=== PATIENT | female | born 1990 | race Caucasian/White ===

== ENCOUNTER 2021-05-27 12:26 | Outpatient (REF) | payer OTHER, SELFPAY ==
[2021-05-27 14:01] LABS: Anion Gap 12 (12-20); Calcium 9.5 mg/dL (8.4-10.2); Carbon Dioxide 21 mmol/L (22-29); Chloride 109 mmol/L (96-108); Magnesium 2.3 mg/dL (1.6-2.6); Phosphorus 3.8 mg/dL (2.7-4.5); Potassium 4.5 mmol/L (3.3-5.1); Sodium 137 mmol/L (135-145)
== END 2021-05-27 12:27 | disposition home or self-care (01) ==
LOC: HO.LAB 12:26
PROVIDERS: PCP Internal Medicine; Visit Provider Psychiatry & Neurology Neurology
DX: R25.3 Fasciculation (principal)
CPT/HCPCS: 36415; 80051; 82310; 82550; 83735; 84100

== ENCOUNTER 2021-08-03 16:01 | Emergency (ER) | payer OTHER, SELFPAY ==
[2021-08-03] VITALS (9 sets, daily range): BP systolic 106–124; BP diastolic 63–76; PULSE 51–68; RESP 12–18; TEMP 36.3–36.9; O2SAT 99–100; BMI 23.5
--- NOTE | 2021-08-03 | ECG_ITS ---
Test Reason : SYNCOPE Blood Pressure : / mmHG Vent. Rate : 061 BPM Atrial Rate : 061 BPM P-R Int : 138 ms QRS Dur : 106 ms QT Int : 412 ms P-R-T Axes : 007 070 065 degrees QTc Int : 414 ms Normal sinus rhythm Incomplete right bundle branch block Borderline ECG No previous ECGs available Referred By: Generic ED Physician Electronically Signed By:LATRICE LADD
--- NOTE | 2021-08-03 18:53 | ED.SYNCOPE ---
HPI - Syncope General Chief Complaint: Syncope Stated Complaint: ?Syncope Time Seen by Provider: 08/03/21 18:52 Source: patient Mode of arrival: ambulatory Limitations: no limitations History of Present Illness HPI narrative: Patient's history of POTS on atenolol was in usual health driving at the signal she just blacked out for few seconds no chest pain no palpitation patient felt tunnel vision with mild headache afterwards when she woke up she felt tired no seizure activity noticed no chest pain no nausea no vomiting patient slept well last night never had a similar episode in Related Data Home Medications Medication Instructions Recorded Confirmed atenolol 25 mg tablet 1 tab PO DAILY 08/03/21 08/03/21 magnesium oxide 400 mg (241.3 mg 1 tab PO BEDTIME 08/03/21 08/03/21 magnesium) tablet topiramate 25 mg tablet 25 mg PO BEDTIME 08/03/21 08/03/21 Allergies Allergy/AdvReac Type Severity Reaction Status Date / Time Peanut Butter Allergy Anaphylaxis Verified 08/03/21 18:59 seafood Allergy Anaphylaxis Verified 08/03/21 18:59 tramadol AdvReac Chest Pain Verified 08/03/21 16:10 Review of Systems Review of Systems: Yes all other systems are reviewed and are negative PMFSH Past Medical History Medical History Migraines POTS (postural orthostatic tachycardia syndrome) Surgical History H/O knee surgery Tubal ligation status Social History Social History Alcohol intake: never Patient Tobacco Use Status: Never used Tobacco Use of substances other than those prescribed or required for medical reasons: No Advance Directives: No Advance Directives Information Provided: No Patient : No Physical Exam Vital Signs: Vital Signs: Last Vital Signs Temp 98.5 F 08/03/21 20:00 Pulse 57 08/03/21 20:56 Resp 14 08/03/21 20:47 BP 107/72 08/03/21 20:56 Pulse Ox 100 08/03/21 20:47 Body Mass Index 23.5 Appearance: Alert. Oriented X3. No acute distress. Eyes: PERRLA, No Nystagmus ENT: Pharynx normal. Oral Mucosa moist Neck: Normal inspection. Neck supple. CVS: Normal heart rate and rhythm. Pulses normal. Respiratory: No respiratory distress. Equal air entry bilateral, no wheezing/rales/rhonchi Abdomen: Soft and nontender. Bowel sounds are present, no mass palpable, no CVA tenderness Skin: Skin warm and dry. Normal skin color. Normal skin turgor. Extremities: No lower extremity edema. No calf tenderness Neuro: Oriented X 3. No motor deficit. No sensory deficit.No cerebellar signs , cranial nerves II-XII intact MDM - Syncope MDM Narrative Medical decision making narrative: Patient's syncope etiology is not very clear possible complex migraine versus complex seizures. Patient advised to follow with PCP Differential Diagnosis Differential diagnosis: Likely syncope due to orthostatic hypotension and vasovagal syncope Lab Data Attestation: I reviewed the patient's lab results. Result diagrams: 08/03/21 19:08 08/03/21 19:08 Labs: Lab Results 08/03/21 08/03/21 08/03/21 Range/Units 19:08 19:08 19:08 WBC 9.0 (4.8-10.8) X10*3/uL RBC 4.31 (4.20-5.50) X10*6/uL Hgb 13.1 (12.0-16.0) g/dl Hct 38.7 (37-47) % MCV 89.8 (80-98) fL MCH 30.4 (27.0-33.0) pg MCHC 33.9 (31.0-35.0) g/dl RDW 11.5 (11.0-16.0) % Plt Count 301 (160-400) X10*3/uL MPV 10.0 (9.4-12.3) fL Immature Gran % (Auto) 0.2 (0.0-0.4) % Neut % (Auto) 56.1 (45-73) % Lymph % (Auto) 29.0 (20-40) % [place] % (Auto) 4.3 (2-11) % Eos % (Auto) 9.8 H (0-4) % Baso % (Auto) 0.6 (0-2) % Lymph # (Auto) 2.6 (1.2-4.9) X10*3/uL [place] # (Auto) 0.4 (0.1-1.2) X10*3/uL Eos # (Auto) 0.9 H (0.0-0.4) X10*3/uL Baso # (Auto) 0.1 (0.0-0.2) X10*3/uL Abs Immat Gran (auto) 0.02 (0.00-0.03) X10*3/uL Absolute Neuts (auto) 5.1 (2.0-8.3) X10*3/uL Absolute Nucleated RBC 0.000 (0.0-0.012) X10*3/uL Nucleated RBC % (auto) 0.0 (0.0-0.2) /100WBC Sodium 139 (135-145) mmol/L Potassium 3.8 (3.3-5.1) mmol/L Chloride 109 H (96-108) mmol/L Carbon Dioxide 22 (22-29) mmol/L Anion Gap 12 (12-20) BUN 11 (9-16) mg/dL Creatinine 0.79 (0.5-1.4) mg/dL Estim Creat Clear Calc 101.2 Estimated GFR > 60 Random Glucose 102 (60-115) mg/dL Calcium 8.9 D (8.4-10.2) mg/dL Magnesium 2.3 (1.6-2.6) mg/dL Total Bilirubin 0.3 (0.0-1.0) mg/dL AST 20 (5-31) U/L ALT 23 (0-31) U/L Alkaline Phosphatase 73 (39-117) U/L Troponin I High Sens < 3.5 (<3.5-17.0) ng/L Total Protein 7.2 (6.5-8.0) g/dL Albumin 4.2 (3.5-5.0) g/dL ECG Data Attestation: I personally reviewed and interpreted this ECG as follows: Interpretation: Normal sinus rhythm heart rate 61 beats per minute incomplete right bundle-branch block no acute ST T wave changes normal axis Discharge Plan Discharge Clinical Impression: Vasovagal syncope Patient Disposition: Home, Self-Care Instructions: Syncope (ED) Additional Instructions: You likely have vasovagal syncope questionable migraine cause Drink plenty of fluids follow-up with your PCP Report to the ER if any seizures. Prescriptions: No Action atenolol 25 mg tablet 1 tab PO DAILY RF: 0 topiramate 25 mg tablet 25 mg PO BEDTIME RF: 0 magnesium oxide 400 mg (241.3 mg magnesium) tablet 1 tab PO BEDTIME RF: 0
[2021-08-03 19:14] LABS: MANUAL DIFF FLAG NO
[2021-08-03 19:17] LABS: Basophils Absolute Auto 0.1 X10*3/uL (0.0-0.2); Basophils Percent Auto 0.6 % (0-2); Eosinophils Absolute Auto 0.9 X10*3/uL (0.0-0.4); Eosinophils Percent Auto 9.8 % (0-4); Hematocrit 38.7 % (37-47); Hemoglobin 13.1 g/dl (12.0-16.0); Imm Gran Abs Auto 0.02 X10*3/uL (0.00-0.03); Imm Gran Pct Auto 0.2 % (0.0-0.4); Lymphocytes Absolute Auto 2.6 X10*3/uL (1.2-4.9); Mean Corpuscular HGB Conc 33.9 g/dl (31.0-35.0); Mean Corpuscular Hemoglobin 30.4 pg (27.0-33.0); Mean Corpuscular Volume 89.8 fL (80-98); Monocytes Absolute Auto 0.4 X10*3/uL (0.1-1.2); Monocytes Percent Auto 4.3 % (2-11); Neutrophils Absolute Auto 5.1 X10*3/uL (2.0-8.3); Neutrophils Percent Auto 56.1 % (45-73); Platelet Count 301 X10*3/uL (160-400); Red Blood Count 4.31 X10*6/uL (4.20-5.50); Red Cell Distribution Width 11.5 % (11.0-16.0)
[2021-08-03 19:32] LABS: Alanine Aminotransferase 23 U/L (0-31); Albumin Level 4.2 g/dL (3.5-5.0); Alkaline Phosphatase 73 U/L (39-117); Anion Gap 12 (12-20); Aspartate Amino Transferase 20 U/L (5-31); Bilirubin Total 0.3 mg/dL (0.0-1.0); Blood Urea Nitrogen 11 mg/dL (9-16); Calcium 8.9 mg/dL (8.4-10.2); Carbon Dioxide 22 mmol/L (22-29); Chloride 109 mmol/L (96-108); Creatinine Clr Calc Pharmacy 101.2; Estimated Glomerular Filt Rate > 60; Glucose Random 102 mg/dL (60-115); Magnesium 2.3 mg/dL (1.6-2.6); Potassium 3.8 mmol/L (3.3-5.1); Sodium 139 mmol/L (135-145); Total Protein 7.2 g/dL (6.5-8.0)
[2021-08-03 19:35] LABS: Troponin-I High Sensitivity < 3.5 ng/L (<3.5-17.0)
--- NOTE | 2021-08-03 20:47 | PC.NURSE ---
Pt resting on stretcher in NAD, breathing with ease on RA. When asked how pt is feeling, she reports I don't feel right. When elaborating, pt states it feels like my heart is in my butt. This RN asks pt for further clarification and she states it feels like it's moving slowly. I'm sitting here trying to follow along [pt on cellphone following along to a live [employer] game] and I know what she's saying, but I also feel like I don't know what she's saying. Pt denies pain/discomfort. Pt reassured that VS are WNL, and this RN to report pt's concerns to Dr Rollins. Stretcher remains in low locked position, rails raised, call trevino within reach.
== END 2021-08-03 22:40 | disposition home or self-care (01) ==
PROVIDERS: Emergency Provider Internal Medicine
DX: R55 Syncope and collapse (principal); Z79.899 Other long term (current) drug therapy
CPT/HCPCS: 36415; 80053; 83735; 84484; 85025; 93005; 99284; 99285

== ENCOUNTER 2021-11-22 13:48 | Outpatient (REF) | payer OTHER, SELFPAY ==
[2021-11-22 14:36] LABS: Binax Internal Control QC Valid; Binax Lot number: 9864; Binax Now Covid-19 Ag Negative (Negative)
== END 2021-11-22 13:49 | disposition home or self-care (01) ==
LOC: HO.LAB 13:48
PROVIDERS: Visit Provider Internal Medicine
DX: Z20.822 Contact with and (suspected) exposure to COVID-19 (principal)
CPT/HCPCS: C9803

== ENCOUNTER 2021-11-28 14:59 | Outpatient (REF) | payer OTHER, SELFPAY ==
[2021-11-28 15:35] LABS: Binax Internal Control QC Valid; Binax Now Covid-19 Ag Positive (Negative)
== END 2021-11-28 15:00 | disposition home or self-care (01) ==
LOC: HO.LAB 14:59
PROVIDERS: Visit Provider Internal Medicine
DX: Z20.822 Contact with and (suspected) exposure to COVID-19 (principal)
CPT/HCPCS: C9803

== ENCOUNTER 2024-03-10 20:03 | Emergency (ER) | payer MEDICAID, SELFPAY ==
[2024-03-10 20:07] VITALS: BP 147/96; PULSE 89; RESP 18; TEMP 36.6; O2SAT 94; BMI 21.9
--- NOTE | 2024-03-10 20:12 | ECG_ITS ---
Test Reason : DIZZINESS Blood Pressure : / mmHG Vent. Rate : 073 BPM Atrial Rate : 073 BPM P-R Int : 098 ms QRS Dur : 096 ms QT Int : 390 ms P-R-T Axes : 075 078 069 degrees QTc Int : 429 ms Sinus rhythm with short OR Otherwise normal ECG When compared with ECG of 03-AUG-2021 16:38, OR interval has decreased Referred By: Susana Dias Electronically Signed By:KETAN PLATT
[2024-03-10 20:27] LABS: MANUAL DIFF FLAG NO
[2024-03-10 20:30] LABS: Basophils Absolute Auto 0.1 X10*3/uL (0.0-0.2); Basophils Percent Auto 0.9 % (0-2); Eosinophils Absolute Auto 0.7 X10*3/uL (0.0-0.4); Eosinophils Percent Auto 8.8 % (0-4); Hematocrit 34.6 % (37.0-47.0); Hemoglobin 12.3 g/dl (12.0-16.0); Imm Gran Abs Auto 0.02 X10*3/uL (0.00-0.03); Imm Gran Pct Auto 0.2 % (0.0-0.4); Lymphocytes Absolute Auto 2.8 X10*3/uL (1.2-4.9); Lymphocytes Percent Auto 34.1 % (20-40); Mean Corpuscular HGB Conc 35.5 g/dl (31.0-35.0); Mean Corpuscular Volume 87.2 fL (80.0-98.0); Mean Platelet Volume 9.7 fL (9.4-12.3); Monocytes Absolute Auto 0.5 X10*3/uL (0.1-1.2); Monocytes Percent Auto 5.6 % (2-11); Neutrophils Absolute Auto 4.1 x10*3/uL (2.0-8.3); Neutrophils Percent Auto 50.4 % (45-73); Platelet Count 336 X10*3/uL (160-400); Red Blood Count 3.97 X10*6/uL (4.20-5.50); Red Cell Distribution Width 11.9 % (11.0-16.0); White Blood Count 8.1 X10*3/uL (4.8-10.8)
[2024-03-10 20:42] LABS: Alanine Aminotransferase 13 U/L (0-31); Albumin Level 4.1 g/dL (3.5-5.0); Alkaline Phosphatase 61 U/L (39-117); Anion Gap 11 (12-20); Aspartate Amino Transferase 13 U/L (5-31); Bilirubin Total 0.4 mg/dL (0.0-1.0); Blood Urea Nitrogen 10 mg/dL (9-16); Calcium 9.2 mg/dL (8.4-10.2); Carbon Dioxide 20 mmol/L (22-29); Chloride 110 mmol/L (96-108); Creatinine Clr Calc Pharmacy 102.3; Estimated Glomerular Filt Rate > 60; Glucose Random 94 mg/dL (60-115); Potassium 3.4 mmol/L (3.3-5.1); Sodium 138 mmol/L (135-145); Total Protein 7.4 g/dL (6.5-8.0)
[2024-03-11 00:07] VITALS: BP 151/93; PULSE 65; RESP 16; TEMP 36.7; O2SAT 100
--- NOTE | 2024-03-11 00:52 | ED.GENADULT ---
HPI - General Adult General Chief complaint: Dizziness Stated complaint: tremors.dizziness Time Seen by Provider: 03/11/24 00:36 History of Present Illness HPI narrative: The patient is a 33-year-old with a history of postural orthostatic tachycardic syndrome (POTS). She is on topiramate, methylphenidate, and atenolol. The patient says for the last 3 days she has been having intermittent episodes of a tremulous type of feeling that begins in her face and then spreads to her body. This is associated with nausea and dizziness and a sense of feeling faint. She has not fainted. She has not vomited. She says the episodes last a few minutes at a time and occurs multiple times throughout the day. She estimates she might have had as many as 20 episodes during the day. She came to the emergency room for evaluation of these episodes. At the time that I interviewed her she was not experiencing an episode but she says that she would experienced 5 episodes of this kind while waiting to be seen in the emergency room. No fever, sweats, chills. Related Data Home Medications ?Medication ?Instructions ?Recorded ?Confirmed atenolol 25 mg tablet 1 tab PO DAILY 08/03/21 08/03/21 magnesium oxide 400 mg (241.3 mg 1 tab PO BEDTIME 08/03/21 08/03/21 magnesium) tablet topiramate 25 mg tablet 25 mg PO BEDTIME 08/03/21 08/03/21 Allergies Allergy/AdvReac Type Severity Reaction Status Date / Time Peanut Butter Allergy Anaphylaxis Verified 03/10/24 20:10 seafood Allergy Anaphylaxis Verified 03/10/24 20:10 tramadol AdvReac Chest Pain Verified 03/10/24 20:10 Review of Systems Review of Systems: Yes all other systems are reviewed and are negative PMF Past Medical History Medical History Migraines POTS (postural orthostatic tachycardia syndrome) Surgical History H/O knee surgery Tubal ligation status Social History Social History Alcohol intake: never Patient Tobacco Use Status: Never used Tobacco Advance Directives: No Advance Directives Information Provided: No Do you have a plan to hurt others: No Plan Physical Exam ED Vital Signs: Vital Signs - 24 hr 03/10/24 20:07 03/11/24 00:07 03/11/24 00:53 Temperature 98 F 98.1 F 98.0 F Pulse Rate 89 65 64 Respiratory Rate 18 16 18 Blood Pressure 147/96 H 151/93 H 144/87 H Pulse Oximetry 94 100 100 Oxygen Delivery Method Room Air Room Air Room Air BMI result Body Mass Index 21.9 Const Other: The patient is awake and alert, she is calm and cooperative. She does not appear in any distress. HENMT Other: Face is symmetrical. Mucous membranes moist. Pharynx is clear. Eyes Other: Pupils are round equal and reactive to light, extraocular movements are intact, conjunctivae are clear Neck Other: No JVD, the neck is supple, no adenopathy Resp Effort & Inspection: normal respiratory effort Auscultation: clear to auscultation bilaterally Cardio Rate: regular rate Rhythm: regular rhythm Heart sounds: S1 normal heart sound present and S2 normal heart sound present GI Other: Abdomen is soft and nontender Skin Other: Skin is dry and unremarkable Neuro Other: The patient is awake and alert with a normal mental status. Eye movements are intact, pupils are appropriate, face is symmetrical, speech is clear, she moves her extremities symmetrically and appropriately. She seems grossly neurologically intact. Extrem Other: No calf swelling or tenderness, no peripheral edema Medical Decision Making Medical Decision Making MDM Narrative: The patient is a 33-year-old female with a history of POTS. Her information management officer is Dr. Austin Nolen. She has a neurologist at [facility], Dr. Monte. Her PCP is Dr. Suarez at [facility] in [place]. The patient describes intermittent episodes of a sense of tremulousness and faint going on for the last 3 days. Clinically she looks well. EKG is unremarkable. Labs including a CBC and a comprehensive metabolic panel are unremarkable. No suggestion of significant dehydration. I do not have a good explanation for the patient's symptoms. The patient's description of the symptoms does not seem to point to any particular syndrome I can think of. The patient was offered IV fluids in case this might make her feel better. She says she is already scheduled to have some IV fluids and 2 days and seems comfortable going home at this point. She should contact your regular doctors for further pursuit of these symptoms. She should return if worse. Lab Data 03/10/24 20:23 03/10/24 20:23 Labs: Lab Results 03/10/24 Range/Units 20:23 WBC 8.1 (4.8-10.8) X10*3/uL RBC 3.97 L (4.20-5.50) X10*6/uL Hgb 12.3 (12.0-16.0) g/dl Hct 34.6 L (37.0-47.0) % MCV 87.2 (80.0-98.0) fL MCH 31.0 (27.0-33.0) pg MCHC 35.5 H (31.0-35.0) g/dl RDW 11.9 (11.0-16.0) % Plt Count 336 (160-400) X10*3/uL MPV 9.7 (9.4-12.3) fL Immature Gran % (Auto) 0.2 (0.0-0.4) % Neut % (Auto) 50.4 (45-73) % Lymph % (Auto) 34.1 (20-40) % [place] % (Auto) 5.6 (2-11) % Eos % (Auto) 8.8 H (0-4) % Baso % (Auto) 0.9 (0-2) % Lymph # (Auto) 2.8 (1.2-4.9) X10*3/uL [place] # (Auto) 0.5 (0.1-1.2) X10*3/uL Eos # (Auto) 0.7 H (0.0-0.4) X10*3/uL Baso # (Auto) 0.1 (0.0-0.2) X10*3/uL Abs Immat Gran (auto) 0.02 (0.00-0.03) X10*3/uL Absolute Neuts (auto) 4.1 (2.0-8.3) x10*3/uL Absolute Nucleated RBC 0.000 (0.0-0.012) X10*3/uL Nucleated RBC % (auto) 0.0 (0.0-0.2) /100WBC Sodium 138 (135-145) mmol/L Potassium 3.4 (3.3-5.1) mmol/L Chloride 110 H (96-108) mmol/L Carbon Dioxide 20 L (22-29) mmol/L Anion Gap 11 L (12-20) BUN 10 (9-16) mg/dL Creatinine 0.76 (0.5-1.4) mg/dL Estim Creat Clear Calc 102.3 Estimated GFR > 60 Random Glucose 94 (60-115) mg/dL Calcium 9.2 (8.4-10.2) mg/dL Total Bilirubin 0.4 (0.0-1.0) mg/dL AST 13 (5-31) U/L ALT 13 (0-31) U/L Alkaline Phosphatase 61 (39-117) U/L Total Protein 7.4 (6.5-8.0) g/dL Albumin 4.1 (3.5-5.0) g/dL Discharge Plan Discharge Clinical Impression: Tremor of unknown origin Patient Disposition: Home, Self-Care Additional Instructions: Your EKG and your blood testing today are reassuring. I do not have a good explanation for the symptoms you have been experiencing but I do not believe the symptoms are indicating an acutely dangerous process. Please plan on keeping your neurology appointment in 2 weeks. I think it would also be reasonable to try to contact your information management officer to discuss these symptoms with your information management officer. Also your primary care doctor. Keep your infusion appointment in the next couple of days as scheduled. Continue your current medications as they are. Return to the emergency room if you feel significantly worse. Prescriptions: No Action atenolol 25 mg tablet 1 tab PO DAILY topiramate 25 mg tablet 25 mg PO BEDTIME magnesium oxide 400 mg (241.3 mg magnesium) tablet 1 tab PO BEDTIME Referrals: Jayden Manzanares MD [Physician] - (Tremors) Austin Nolen MD [Physician] - (Tremors) Print Language: Syriac
[2024-03-11 00:53] VITALS: BP 144/87; PULSE 64; RESP 18; TEMP 36.7; O2SAT 100
[2024-03-11 01:34] VITALS: BP 144/87; PULSE 64; RESP 18; TEMP 36.7; O2SAT 100
== END 2024-03-11 01:30 | disposition home or self-care (01) ==
PROVIDERS: Nurse Practitioner Family; Emergency Provider Emergency Medicine
DX: R25.1 Tremor, unspecified (principal); G90.A Postural orthostatic tachycardia syndrome [POTS]; R42 Dizziness and giddiness; R11.0 Nausea; Z79.899 Other long term (current) drug therapy
CPT/HCPCS: 36415; 80053; 85025; 93005; 99283; 99284

== ENCOUNTER → 2024-03-10 20:12 | Outpatient (BNV) | payer MEDICAID, SELFPAY | PROVIDERS: Emergency Provider Emergency Medicine; Visit Provider Internal Medicine | DX: R42 Dizziness and giddiness (principal) | CPT/HCPCS: 93010 ==

== ENCOUNTER 2024-12-15 13:11 | Emergency (ER) | payer MEDICAID, SELFPAY ==
--- NOTE | 2024-12-15 13:29 | ED_ITS ---
HPI - General Adult General Chief complaint: General Medical Stated complaint: blocked port Time Seen by Provider: 12/15/24 13:29 Source: patient Mode of arrival: ambulatory Limitations: no limitations History of Present Illness ED Provider: Evin Dean PA-C HPI narrative: 34 yo female with history of POTS with right Port for IV hydration, history of migraines who presents to the ER from home c/o her port not functioning properly. She had the port placed 10/31/24 and has had issues with it not drawing back blood a couple of times. She uses the port about every other day for IV hydration where she infuses 1000cc over 4 hours for her POTS. She last used it on Thursday and it was working ok. No redness, pain, or swelling at the site. She called the medical company when she couldnt flush it who told her to come get evaluated. complaint: nonfunctioning port Onset (ago): hour(s) Location: chest Radiation: non-radiation Relieving factors: none Exacerbating factors: none Associated symptoms: denies other symptoms Treatments prior to arrival: none Related Data Home Medications ?Medication ?Instructions ?Recorded ?Confirmed atenolol 25 mg tablet 1 tab PO DAILY 08/03/21 08/03/21 magnesium oxide 400 mg (241.3 mg 1 tab PO BEDTIME 08/03/21 08/03/21 magnesium) tablet topiramate 25 mg tablet 25 mg PO BEDTIME 08/03/21 08/03/21 Allergies Allergy/AdvReac Type Severity Reaction Status Date / Time Peanut Butter Allergy Anaphylaxis Verified 12/15/24 13:32 seafood Allergy Anaphylaxis Verified 12/15/24 13:32 tramadol AdvReac Chest Pain Verified 12/15/24 13:32 Review of Systems Review of Systems: Yes all other systems are reviewed and are negative PMFSH Past Medical History Medical History Migraines POTS (postural orthostatic tachycardia syndrome) Surgical History H/O knee surgery Tubal ligation status Social History Social History Alcohol intake: never Patient Tobacco Use Status: Never used Tobacco Smoked in Last 30 Days: No Use of substances other than those prescribed or required for medical reasons: No Advance Directives: No Advance Directives Information Provided: Yes Do you have a plan to hurt others: No Plan Patient : No Physical Exam ED Vital Signs: BMI result Body Mass Index 25.8 Appearance: Alert. Oriented X3. No acute distress. HEENT: normal inspection Chest: right anterior chest with a port-a-cath in place, no surrounding erythema, nontender. Respiratory: No respiratory distress. Skin: Skin warm and dry. Normal skin color. Normal skin turgor. No rashes. Extremities: normal inspection x4, no peripheral edema Neuro: Oriented X 3. grossly normal, nonfocal Medications Administered Discontinued Medications Generic Name Dose Route Start Last Admin Trade Name Freq PRN Reason Stop Dose Admin Alteplase, Recombinant 2 mg 12/15/24 13:55 12/15/24 14:15 Alteplase Cath Clear 2 Mg/2 Ml Vial INTRAARTER 12/15/24 13:56 2 mg ONCE ONE Administration Medical Decision Making Medical Decision Making MDM Narrative: 34 yo female with history of POTS and a port for IV hydration presenting for evaluation after her port was not returning blood today. attempted here with no blood return. 2mg alteplase infused per protocol after d/w pharmacy. sat in catheter for 30 minutes port then flushed well and there was blood return. heplock given and patient stable for d/c home with outpatient follow up PRN. Differential Diagnosis Differential Diagnoses: The differential diagnosis associated with the presentation includes malposition of the port, clot in the distal port, kink External Record Review External record reviewed: Outpatient record, Prior outpatient labs and Prior outpatient radiology Tests considered The following testing was considered but not selected: considered CXR to look for appropriate placement or kink Chronic Conditions Patient?s care impacted by: Other (POTS) Critical Care Time Critical Care Time Critical Care Time: No Discharge Plan Discharge Clinical Impression: Port-A-Cath in place Patient Disposition: Home, Self-Care Instructions: How to Care for Your Implanted Venous Access Port (DC) Additional Instructions: follow up with your doctor as needed If you develop new or worsening symptoms call 911 or come back to the ER for further evaluation. Prescriptions: No Action atenolol 25 mg tablet 1 tab PO DAILY topiramate 25 mg tablet 25 mg PO BEDTIME magnesium oxide 400 mg (241.3 mg magnesium) tablet 1 tab PO BEDTIME Print Language: [place]an
[2024-12-15 13:30] VITALS: BMI 25.8
[2024-12-15] MEDS: Alteplase Cath Clear 2 MG/2 ML VIAL INTRAARTER (14:15)
--- NOTE | 2024-12-15 14:24 | PC.NURSE ---
Pt comes to ED today with concerns for a block in her Power Port. States she uses her Power Port every other day, today when she accessed it she was unable to get any blood return. States this is an ongoing issue. Pt is A&Ox3 Denies any pain, fever, chills, n/v/d Power port accessed by this RN using sterile technique. Port flushes well, no resistance however unable to get blood return. Alteplase administered per JAN. Will reattempt blood return in approx. 30 minutes.
[2024-12-15] MEDS: Heparin Sodium,Porcine Flush 50 UNITS, 0.9 % Sodium Chloride Flush 5 ML IVFLUSH (16:19)
[2024-12-15 16:20] VITALS: BP 107/65; PULSE 74; RESP 16; TEMP 36.7; O2SAT 100
== END 2024-12-15 16:21 | disposition home or self-care (01) ==
PROVIDERS: Emergency Provider Emergency Medicine; PCP Family Medicine
DX: T82.9XXA Unspecified complication of cardiac and vascular prosthetic device, implant and graft, initial encounter (principal); Y82.8 Other medical devices associated with adverse incidents; Y92.9 Unspecified place or not applicable; G90.A Postural orthostatic tachycardia syndrome [POTS]; Z79.899 Other long term (current) drug therapy
CPT/HCPCS: 99284; J1642; J2997

== ENCOUNTER 2024-12-21 07:16 | Emergency (ER) | payer MEDICAID, SELFPAY ==
--- NOTE | ~2024-12-21 | XR_ITS ---
EXAMINATION: XR CHEST CLINICAL INFORMATION: chest pain COMPARISON: None available. TECHNIQUE: Frontal view of the chest was obtained. FINDINGS: Right chest port in place, tip at the cavoatrial junction. Cardiac, hilar, and mediastinal contours are normal. The lungs are clear bilaterally. No focal osseous or soft tissue abnormality. XR/XR chest 1V IMPRESSION: No active disease. Electronically signed by: Guillermo Menard MD 12/21/2024 08:17 AM NIDIA
--- NOTE | 2024-12-21 07:19 | ECG_ITS ---
Test Reason : rogalt Blood Pressure : */* mmHG Vent. Rate : 109 BPM Atrial Rate : 109 BPM P-R Int : 148 ms QRS Dur : 104 ms QT Int : 338 ms P-R-T Axes : 54 93 49 degrees QTcB Int : 455 ms Sinus tachycardia Rightward axis Incomplete right bundle branch block Cannot rule out Anterior infarct , age undetermined Abnormal ECG When compared with ECG of 10-Mar-2024 20:16, AR interval has increased Vent. rate has increased by 36 bpm Referred By: Generic ED Physician Electronically Signed By: DEISI DAVE MD
[2024-12-21 07:26] VITALS: BP 143/82; PULSE 98; RESP 20; TEMP 36.9; O2SAT 100; BMI 23.6
[2024-12-21 07:52] LABS: MANUAL DIFF FLAG NO
[2024-12-21 07:55] LABS: Basophils Absolute Auto 0.1 X10*3/uL (0.0-0.2); Basophils Percent Auto 0.6 % (0-2); Eosinophils Absolute Auto 1.1 X10*3/uL (0.0-0.4); Eosinophils Percent Auto 13.6 % (0-4); Hematocrit 36.5 % (37.0-47.0); Hemoglobin 12.5 g/dl (12.0-16.0); Imm Gran Abs Auto 0.02 X10*3/uL (0.00-0.03); Imm Gran Pct Auto 0.3 % (0.0-0.4); Lymphocytes Absolute Auto 2.1 X10*3/uL (1.2-4.9); Lymphocytes Percent Auto 26.4 % (20-40); Mean Corpuscular HGB Conc 34.2 g/dl (31.0-35.0); Mean Corpuscular Hemoglobin 30.1 pg (27.0-33.0); Mean Platelet Volume 9.5 fL (9.4-12.3); Monocytes Absolute Auto 0.3 X10*3/uL (0.1-1.2); Monocytes Percent Auto 3.4 % (2-11); Neutrophils Absolute Auto 4.5 x10*3/uL (2.0-8.3); Neutrophils Percent Auto 55.7 % (45-73); Platelet Count 255 X10*3/uL (160-400); Red Blood Count 4.15 X10*6/uL (4.20-5.50); Red Cell Distribution Width 11.4 % (11.0-16.0)
[2024-12-21 08:12] LABS: Alanine Aminotransferase 29 U/L (0-31); Albumin Level 3.8 g/dL (3.5-5.0); Alkaline Phosphatase 64 U/L (39-117); Anion Gap 11 (12-20); Aspartate Amino Transferase 22 U/L (5-31); Bilirubin Direct 0.2 mg/dL (0.0-0.5); Bilirubin Total 0.6 mg/dL (0.0-1.0); Blood Urea Nitrogen 9 mg/dL (9-16); Calcium 8.6 mg/dL (8.4-10.2); Carbon Dioxide 21 mmol/L (22-29); Chloride 110 mmol/L (96-108); Creatinine Clr Calc Pharmacy 105.6; Estimated Glomerular Filt Rate > 60; Glucose Random 137 mg/dL (60-115); Lipase 20 U/L (8-78); Potassium 3.6 mmol/L (3.3-5.1); Sodium 138 mmol/L (135-145); Total Protein 7.4 g/dL (6.5-8.0)
[2024-12-21 08:22] LABS: Troponin-I High Sensitivity < 2.7 ng/L (<3.5-17.0)
[2024-12-21 08:34] LABS: Influenza A PCR NEGATIVE (Negative); Influenza B PCR NEGATIVE (Negative); Resp Syncy Virus RNA Qual PCR NEGATIVE (Negative); SARS COV2 PCR INHOUSE NEGATIVE (Negative)
[2024-12-21 09:06] VITALS: BP 132/77; PULSE 62; RESP 14; TEMP 36.6; O2SAT 100
--- NOTE | 2024-12-21 09:08 | MHC.EDTECH ---
pt brought to ED 18, changed into hospital attire, vitals taken and charted, heart monitor in place, awaiting to be seen by provider
--- NOTE | 2024-12-21 09:26 | ED.CHESTPAIN ---
HPI - Chest Pain General Chief Complaint: Chest Pain Stated Complaint: Pain in Chest Radiating to Neck/Jaw Time Seen by Provider: 12/21/24 09:03 Source: patient and old records reviewed Mode of arrival: ambulatory Limitations: no limitations History of Present Illness ED Provider: ABIGAIL SOTELO narrative: 34 yo female with PMH of POTS, migraines, here with c/o intermittent chest pain worse with movement that radiates to jaw on R side and then last night her left arm started to hurt. She is not on OCPs, denies recent travel, procedures, no recent URIs. She denies dyspnea. Not related to exertion. She has no cough. She has no knwon CAD, viviane danlos or any other cardiac issue. MD complaint: chest pain Onset (ago): day(s) (yesterday) Timing of current episode: episodic Prior episodes: Yes Onset: during rest Pain location: substernal and left chest Pain radiation: left arm and jaw/teeth Severity: moderate Quality: tightness and aching Relieving factors: nothing Exacerbating factors: movement Treatment prior to arrival: none Related Data Home Medications ?Medication ?Instructions ?Recorded ?Confirmed atenolol 25 mg tablet 1 tab PO DAILY 08/03/21 08/03/21 magnesium oxide 400 mg (241.3 mg 1 tab PO BEDTIME 08/03/21 08/03/21 magnesium) tablet topiramate 25 mg tablet 25 mg PO BEDTIME 08/03/21 08/03/21 Allergies Allergy/AdvReac Type Severity Reaction Status Date / Time Peanut Butter Allergy Anaphylaxis Verified 12/21/24 07:29 seafood Allergy Anaphylaxis Verified 12/21/24 07:29 tramadol AdvReac Chest Pain Verified 12/21/24 07:29 Review of Systems Review of Systems: Constitutional : No Weight loss, No Fever, No Chills ENT/Mouth : No sore throat, No Rhinorrhea Eyes: No Eye Pain, No Swelling Cardiovascular : pos Chest Pain, no SOB, no Dyspnea on Exertion, No Orthopnea, No Edema, No Palpitations Respiratory : No Cough, No Sputum Gastrointestinal : no Nausea, No Vomiting, No Diarrhea, No abdominal Pain, No Hematochezia, No Melena Genitourinary : No Dysuria, No Urinary Frequency Musculoskeletal : No joint pain, No Myalgias, No Joint Swelling Skin : No Skin Lesions, No rash Neuro : No Weakness, No Numbness, No Dizziness, No Headache Psych : No Anxiety/Panic, No Depression All other systems reviewed and are negative [facility] Past Medical History Attestation statement: The following information was validated with the patient. Source: old records reviewed Medical History POTS (postural orthostatic tachycardia syndrome) Migraines Surgical History H/O knee surgery Tubal ligation status Social History Social History Alcohol intake: never Patient Tobacco Use Status: Never used Tobacco Advance Directives: No Advance Directives Information Provided: Yes Do you have a plan to hurt others: No Plan Physical Exam Vital Signs: Vital Signs: Last Vital Signs Temp 98 F 12/21/24 09:06 Pulse 62 12/21/24 09:06 Resp 14 12/21/24 09:06 BP 132/77 12/21/24 09:06 Pulse Ox 100 12/21/24 09:06 O2 Del Method Room Air 12/21/24 09:06 BMI result Body Mass Index 23.6 Appearance: Alert. Oriented X3. No acute distress. Eyes: Pupils equal, round and reactive to light. ENT: Pharynx normal. Neck: Normal inspection. Neck supple. CVS: Normal heart rate and rhythm. Pulses normal. Respiratory: No respiratory distress. Breath sounds normal. Abdomen: Soft and nontender. Skin: Skin warm and dry. Normal skin color. Normal skin turgor. Extremities: No lower extremity edema. No calf ttp Neuro: Oriented X 3. No motor deficit. No sensory deficit. CN2-12 intact Medications Administered Discontinued Medications Generic Name Dose Route Start Last Admin Trade Name Freq PRN Reason Stop Dose Admin Lactated Ringer's 1,000 mls @ 999 mls/hr 12/21/24 09:26 12/21/24 09:52 Lr IV 12/21/24 10:26 999 mls/hr .Q1H1M ONE Administration Medical Decision Making Medical Decision Making MDM Narrative: 34 yo female with PMH of POTS, migraines, here with c/o atypical chest pain but no risk factors for VTE and no known issues with heart or aorta. Her pulses are intact and symmetric doubt dissection. ddimer for low prob PE - will obtain EKG x 2, first EKG nonspecific likely due to rate and incomplete RBBB will repeat along with troponin. If negative work up will DC home with outpatient precautions. Given POTS will order a liter of fluid. Differential Diagnosis Differential Diagnoses: The differential diagnosis associated with the presentation includes atypical chest pain, VTE, distal pulses intact and symmetric doubt dissection costochondritis Admission/Observation Consideration of admission/observation: Escalation of care including admission/observation considered repeat trop and EKG nonischemic, feels better with IVF Lab Data MDM Lab Attestation statement: I reviewed the patient's lab results. 12/21/24 07:46 12/21/24 07:46 Labs: Lab Results 12/21/24 12/21/24 12/21/24 Range/Units 07:46 07:48 09:48 WBC 8.0 (4.8-10.8) X10*3/uL RBC 4.15 L (4.20-5.50) X10*6/uL Hgb 12.5 (12.0-16.0) g/dl Hct 36.5 L (37.0-47.0) % MCV 88.0 (80.0-98.0) fL MCH 30.1 (27.0-33.0) pg MCHC 34.2 (31.0-35.0) g/dl RDW 11.4 (11.0-16.0) % Plt Count 255 (160-400) X10*3/uL MPV 9.5 (9.4-12.3) fL Immature Gran % (Auto) 0.3 (0.0-0.4) % Neut % (Auto) 55.7 (45-73) % Lymph % (Auto) 26.4 (20-40) % Davis % (Auto) 3.4 (2-11) % Eos % (Auto) 13.6 H (0-4) % Baso % (Auto) 0.6 (0-2) % Lymph # (Auto) 2.1 (1.2-4.9) X10*3/uL [place] # (Auto) 0.3 (0.1-1.2) X10*3/uL Eos # (Auto) 1.1 H (0.0-0.4) X10*3/uL Baso # (Auto) 0.1 (0.0-0.2) X10*3/uL Abs Immat Gran (auto) 0.02 (0.00-0.03) X10*3/uL Absolute Neuts (auto) 4.5 (2.0-8.3) x10*3/uL Absolute Nucleated RBC 0.000 (0.0-0.012) X10*3/uL Nucleated RBC % (auto) 0.0 (0.0-0.2) /100WBC D-Dimer High Sensitivty 199 NG/ML Sodium 138 (135-145) mmol/L Potassium 3.6 (3.3-5.1) mmol/L Chloride 110 H (96-108) mmol/L Carbon Dioxide 21 L (22-29) mmol/L Anion Gap 11 L (12-20) BUN 9 (9-16) mg/dL Creatinine 0.73 (0.5-1.4) mg/dL Estim Creat Clear Calc 105.6 Estimated GFR > 60 Random Glucose 137 H (60-115) mg/dL Calcium 8.6 D (8.4-10.2) mg/dL Magnesium 1.9 (1.6-2.6) mg/dL Total Bilirubin 0.6 (0.0-1.0) mg/dL Direct Bilirubin 0.2 (0.0-0.5) mg/dL AST 22 (5-31) U/L ALT 29 (0-31) U/L Alkaline Phosphatase 64 (39-117) U/L Troponin I High Sens < 2.7 (<3.5-17.0) ng/L Total Protein 7.4 (6.5-8.0) g/dL Albumin 3.8 (3.5-5.0) g/dL Lipase 20 (8-78) U/L Beta HCG, Quant < 2 mIU/mL Influenza Type A (PCR) NEGATIVE (Negative) Influenza Type B (PCR) NEGATIVE (Negative) RSV RNA Qual (PCR) NEGATIVE (Negative) SARS-CoV-2 RNA (RT-PCR) NEGATIVE (Negative) 12/21/24 Range/Units 10:32 WBC (4.8-10.8) X10*3/uL RBC (4.20-5.50) X10*6/uL Hgb (12.0-16.0) g/dl Hct (37.0-47.0) % MCV (80.0-98.0) fL MCH (27.0-33.0) pg MCHC (31.0-35.0) g/dl RDW (11.0-16.0) % Plt Count (160-400) X10*3/uL MPV (9.4-12.3) fL Immature Gran % (Auto) (0.0-0.4) % Neut % (Auto) (45-73) % Lymph % (Auto) (20-40) % Davis % (Auto) (2-11) % Eos % (Auto) (0-4) % Baso % (Auto) (0-2) % Lymph # (Auto) (1.2-4.9) X10*3/uL Davis # (Auto) (0.1-1.2) X10*3/uL Eos # (Auto) (0.0-0.4) X10*3/uL Baso # (Auto) (0.0-0.2) X10*3/uL Abs Immat Gran (auto) (0.00-0.03) X10*3/uL Absolute Neuts (auto) (2.0-8.3) x10*3/uL Absolute Nucleated RBC (0.0-0.012) X10*3/uL Nucleated RBC % (auto) (0.0-0.2) /100WBC D-Dimer High Sensitivty NG/ML Sodium (135-145) mmol/L Potassium (3.3-5.1) mmol/L Chloride (96-108) mmol/L Carbon Dioxide (22-29) mmol/L Anion Gap (12-20) BUN (9-16) mg/dL Creatinine (0.5-1.4) mg/dL Estim Creat Clear Calc Estimated GFR Random Glucose (60-115) mg/dL Calcium (8.4-10.2) mg/dL Magnesium (1.6-2.6) mg/dL Total Bilirubin (0.0-1.0) mg/dL Direct Bilirubin (0.0-0.5) mg/dL AST (5-31) U/L ALT (0-31) U/L Alkaline Phosphatase (39-117) U/L Troponin I High Sens < 2.7 (<3.5-17.0) ng/L Total Protein (6.5-8.0) g/dL Albumin (3.5-5.0) g/dL Lipase (8-78) U/L Beta HCG, Quant mIU/mL Influenza Type A (PCR) (Negative) Influenza Type B (PCR) (Negative) RSV RNA Qual (PCR) (Negative) SARS-CoV-2 RNA (RT-PCR) (Negative) Independent Interpretation I performed an independent interpretation of an: EKG and Plain X-Ray (normal ) Interpretation: Rate: 109 Rhythm: sinus tach [place]: normal Normal P waves. Normal JENNA. incomplete RBBB ST T wave : nonspecific ST T wave changes inf/lat leads qTC: 455 prior studies: changed The study has been interpreted contemporaneously by me. EKG #2 Rate: 71 Rhythm: NSR [place]: normal Normal P waves. Normal JENNA. incomplete RBBB. ST T wave : inverted T wave V1, no JEN qTC:423 prior studies: normal appearing The study has been interpreted contemporaneously by me. . Radiology Impression Discussion of test interpretation with radiology: I have reviewed the radiologist's reading. External Record Review External record reviewed: Outpatient record Discharge Plan Discharge Clinical Impression: Atypical chest pain Patient Disposition: Home, Self-Care Instructions: Chest Wall Pain (ED) Additional Instructions: chest xray reassuring negative ddimer repeat heart tests troponin are negative given 1L of fluid in ED please follow up with your surgical endoscopist return for any worsening symptoms or concerns. Prescriptions: No Action atenolol 25 mg tablet 1 tab PO DAILY topiramate 25 mg tablet 25 mg PO BEDTIME magnesium oxide 400 mg (241.3 mg magnesium) tablet 1 tab PO BEDTIME Print Language: Mohawk
[2024-12-21 09:30] LABS: HCG Quantitative < 2 mIU/mL; Magnesium 1.9 mg/dL (1.6-2.6)
[2024-12-21] MEDS: Lactated Ringers 1,000 ML 999 ML IV (09:52)
--- NOTE | 2024-12-21 09:58 | ECG_ITS ---
Test Reason : cp Blood Pressure : */* mmHG Vent. Rate : 71 BPM Atrial Rate : 71 BPM P-R Int : 132 ms QRS Dur : 100 ms QT Int : 390 ms P-R-T Axes : 38 64 64 degrees QTcB Int : 423 ms Normal sinus rhythm Incomplete right bundle branch block Borderline ECG When compared with ECG of 21-Dec-2024 07:21, Vent. rate has decreased by 38 bpm Referred By: Cheyanne Levy Electronically Signed By: DEISI DAVE MD
[2024-12-21 10:09] LABS: D Dimer High Sensitivity 199 NG/ML
[2024-12-21 11:11] LABS: Troponin-I High Sensitivity < 2.7 ng/L (<3.5-17.0)
[2024-12-21 11:27] VITALS: BP 114/77; PULSE 61; RESP 18; TEMP 36.7; O2SAT 99
[2024-12-21 12:11] VITALS: BP 114/77; PULSE 61; RESP 18; TEMP 36.7; O2SAT 99
== END 2024-12-21 12:16 | disposition home or self-care (01) ==
PROVIDERS: Emergency Provider Emergency Medicine; PCP Internal Medicine
DX: R07.89 Other chest pain (principal); Z79.899 Other long term (current) drug therapy; Z03.818 Encounter for observation for suspected exposure to other biological agents ruled out
CPT/HCPCS: 0241U; 36415; 71045; 80048; 80076; 83690; 83735; 84484; 84702; 85025; 85379; 93005; 99283; 99284; J7120

== ENCOUNTER → 2024-12-21 07:19 | Outpatient (BNV) | payer MEDICAID, SELFPAY | PROVIDERS: Emergency Provider Emergency Medicine; PCP Internal Medicine; Visit Provider Internal Medicine Cardiovascular Disease | DX: I45.10 Unspecified right bundle-branch block (principal); R00.0 Tachycardia, unspecified | CPT/HCPCS: 93010 ==

== ENCOUNTER → 2024-12-21 07:31 | Outpatient (BNV) | payer MEDICAID, SELFPAY | PROVIDERS: Emergency Provider Emergency Medicine; PCP Internal Medicine; Visit Provider Radiology Diagnostic Radiology | DX: R07.9 Chest pain, unspecified (principal) | CPT/HCPCS: 71045 ==

== ENCOUNTER 2025-01-09 16:40 | Emergency (ER) | payer MEDICAID, SELFPAY ==
--- NOTE | 2025-01-09 | ECG_ITS ---
Test Reason : cp Blood Pressure : */* mmHG Vent. Rate : 83 BPM Atrial Rate : 83 BPM P-R Int : 120 ms QRS Dur : 100 ms QT Int : 382 ms P-R-T Axes : -5 61 61 degrees QTcB Int : 448 ms Normal sinus rhythm Incomplete right bundle branch block Borderline ECG When compared with ECG of 21-Dec-2024 10:27, No significant change was found Referred By: Generic ED Physician Electronically Signed By: DEISI DAVE MD
--- NOTE | 2025-01-09 16:57 | PC.NURSE ---
EKG on EMS arrival, MD archuleta'd to have pt go external, IV line from EMS removed at this time.
[2025-01-09 17:05] VITALS: BP 124/77; PULSE 71; O2SAT 100
[2025-01-09 17:18] VITALS: BP 133/80; PULSE 68; RESP 18; TEMP 36.6; O2SAT 100; BMI 24.0
--- NOTE | 2025-01-09 17:18 | ED_ITS ---
HPI - General Adult General Chief complaint: Chest Pain Stated complaint: chest pain Related Data Home Medications ?Medication ?Instructions ?Recorded ?Confirmed atenolol 25 mg tablet 1 tab PO DAILY 08/03/21 08/03/21 magnesium oxide 400 mg (241.3 mg 1 tab PO BEDTIME 08/03/21 08/03/21 magnesium) tablet topiramate 25 mg tablet 25 mg PO BEDTIME 08/03/21 08/03/21 Allergies Allergy/AdvReac Type Severity Reaction Status Date / Time Peanut Butter Allergy Anaphylaxis Verified 01/09/25 17:19 seafood Allergy Anaphylaxis Verified 01/09/25 17:19 tramadol AdvReac Chest Pain Verified 01/09/25 17:19 PMFSH Past Medical History Medical History POTS (postural orthostatic tachycardia syndrome) Migraines Surgical History H/O knee surgery Tubal ligation status Social History Social History Alcohol intake: never Patient Tobacco Use Status: Never used Tobacco Advance Directives: No Advance Directives Information Provided: No Physical Exam ED Vital Signs: BMI result Body Mass Index 24.0 Course Course Course Narrative: RME performed by Kaylee Granados PA-C. Patient is a 34 year old assigned female at presenting to the emergency department with chest pain. Patient states that she was having chest pain radiating into her neck and arm. Patient's limited physical examination performed in triage showed a non-toxic individual, with non labored breathing and speaking in clear / full sentences. Detailed physical exam and review of systems are deferred to the air route traffic controller. EKG, labs, imaging, and swabs ordered. Patient placed back in the waiting room pending room availability and results. Kaylee Granados PA-C ---> Patient left the department without completing treatment. Patient left the department before myself or any of the other emergency department clinicians could explain to or review with the patient; physical exam findings, test results, need or lack there of for additional testing, need or lack there of for a procedure to be performed, need or lack there of for hospital admission / transfer, need or lack there of for prescription medication, treatment options, or a treatment plan. Medications Administered Discontinued Medications Generic Name Dose Route Start Last Admin Trade Name Ap PRN Reason Stop Dose Admin Acetaminophen 650 mg 01/09/25 18:57 01/09/25 18:59 Acetaminophen 325 Mg Tablet PO 01/09/25 18:58 650 mg ONCE ONE Administration Medical Decision Making Lab Data 01/09/25 18:09 01/09/25 18:09 Labs: Lab Results 01/09/25 01/09/25 Range/Units 18:09 22:18 WBC 8.9 (4.8-10.8) X10*3/uL RBC 4.06 L (4.20-5.50) X10*6/uL Hgb 12.5 (12.0-16.0) g/dl Hct 36.1 L (37.0-47.0) % MCV 88.9 (80.0-98.0) fL MCH 30.8 (27.0-33.0) pg MCHC 34.6 (31.0-35.0) g/dl RDW 11.5 (11.0-16.0) % Plt Count 274 (160-400) X10*3/uL MPV 9.6 (9.4-12.3) fL Immature Gran % (Auto) 0.1 (0.0-0.4) % Neut % (Auto) 55.8 (45-73) % Lymph % (Auto) 25.0 (20-40) % [place] % (Auto) 5.3 (2-11) % Eos % (Auto) 13.2 H (0-4) % Baso % (Auto) 0.6 (0-2) % Lymph # (Auto) 2.2 (1.2-4.9) X10*3/uL [place] # (Auto) 0.5 (0.1-1.2) X10*3/uL Eos # (Auto) 1.2 H (0.0-0.4) X10*3/uL Baso # (Auto) 0.1 (0.0-0.2) X10*3/uL Abs Immat Gran (auto) 0.01 (0.00-0.03) X10*3/uL Absolute Neuts (auto) 5.0 (2.0-8.3) x10*3/uL Absolute Nucleated RBC 0.000 (0.0-0.012) X10*3/uL Nucleated RBC % (auto) 0.0 (0.0-0.2) /100WBC PT 11.7 (10.9-12.4) SEC INR 1.0 (0.9-1.1) APTT 30.2 (26.0-36.8) SEC Sodium 138 (135-145) mmol/L Potassium 4.0 (3.3-5.1) mmol/L Chloride 108 (96-108) mmol/L Carbon Dioxide 24 (22-29) mmol/L Anion Gap 10 L (12-20) BUN 9 (9-16) mg/dL Creatinine 0.71 (0.5-1.4) mg/dL Estim Creat Clear Calc 108.5 Estimated GFR > 60 Random Glucose 85 (60-115) mg/dL Calcium 8.5 (8.4-10.2) mg/dL Magnesium 2.3 (1.6-2.6) mg/dL Total Bilirubin 0.2 (0.0-1.0) mg/dL AST 27 (5-31) U/L ALT 34 H (0-31) U/L Alkaline Phosphatase 72 (39-117) U/L Troponin I High Sens < 2.7 < 2.7 (<3.5-17.0) ng/L Total Protein 7.6 (6.5-8.0) g/dL Albumin 4.0 (3.5-5.0) g/dL Influenza Type A (PCR) NEGATIVE (Negative) Influenza Type B (PCR) NEGATIVE (Negative) RSV RNA Qual (PCR) NEGATIVE (Negative) SARS-CoV-2 RNA (RT-PCR) NEGATIVE (Negative) Discharge Plan Discharge Clinical Impression: Chest pain Patient Disposition: Left W/O Completing Treatment Prescriptions: No Action atenolol 25 mg tablet 1 tab PO DAILY topiramate 25 mg tablet 25 mg PO BEDTIME magnesium oxide 400 mg (241.3 mg magnesium) tablet 1 tab PO BEDTIME Discharge Date/Time: 01/10/25 00:04
[2025-01-09 18:16] LABS: MANUAL DIFF FLAG NO
[2025-01-09 18:19] LABS: Basophils Absolute Auto 0.1 X10*3/uL (0.0-0.2); Basophils Percent Auto 0.6 % (0-2); Eosinophils Absolute Auto 1.2 X10*3/uL (0.0-0.4); Eosinophils Percent Auto 13.2 % (0-4); Hematocrit 36.1 % (37.0-47.0); Hemoglobin 12.5 g/dl (12.0-16.0); Imm Gran Abs Auto 0.01 X10*3/uL (0.00-0.03); Imm Gran Pct Auto 0.1 % (0.0-0.4); Lymphocytes Absolute Auto 2.2 X10*3/uL (1.2-4.9); Mean Corpuscular HGB Conc 34.6 g/dl (31.0-35.0); Mean Corpuscular Hemoglobin 30.8 pg (27.0-33.0); Mean Corpuscular Volume 88.9 fL (80.0-98.0); Mean Platelet Volume 9.6 fL (9.4-12.3); Monocytes Absolute Auto 0.5 X10*3/uL (0.1-1.2); Monocytes Percent Auto 5.3 % (2-11); Neutrophils Percent Auto 55.8 % (45-73); Platelet Count 274 X10*3/uL (160-400); Red Blood Count 4.06 X10*6/uL (4.20-5.50); Red Cell Distribution Width 11.5 % (11.0-16.0); White Blood Count 8.9 X10*3/uL (4.8-10.8)
[2025-01-09 18:25] LABS: Prothrombin Time 11.7 SEC (10.9-12.4)
[2025-01-09 18:27] LABS: Partial Thromboplastin Time 30.2 SEC (26.0-36.8)
[2025-01-09 18:35] LABS: Alanine Aminotransferase 34 U/L (0-31); Alkaline Phosphatase 72 U/L (39-117); Anion Gap 10 (12-20); Aspartate Amino Transferase 27 U/L (5-31); Bilirubin Total 0.2 mg/dL (0.0-1.0); Blood Urea Nitrogen 9 mg/dL (9-16); Calcium 8.5 mg/dL (8.4-10.2); Carbon Dioxide 24 mmol/L (22-29); Chloride 108 mmol/L (96-108); Creatinine Clr Calc Pharmacy 108.5; Estimated Glomerular Filt Rate > 60; Glucose Random 85 mg/dL (60-115); Magnesium 2.3 mg/dL (1.6-2.6); Sodium 138 mmol/L (135-145); Total Protein 7.6 g/dL (6.5-8.0)
[2025-01-09 18:44] LABS: Troponin-I High Sensitivity < 2.7 ng/L (<3.5-17.0)
[2025-01-09 18:55] LABS: Influenza A PCR NEGATIVE (Negative); Influenza B PCR NEGATIVE (Negative); Resp Syncy Virus RNA Qual PCR NEGATIVE (Negative); SARS COV2 PCR INHOUSE NEGATIVE (Negative)
--- NOTE | 2025-01-09 18:57 | ECG_ITS ---
Test Reason : worsening cp/repeat Blood Pressure : */* mmHG Vent. Rate : 72 BPM Atrial Rate : 72 BPM P-R Int : 106 ms QRS Dur : 94 ms QT Int : 396 ms P-R-T Axes : 58 66 58 degrees QTcB Int : 433 ms Sinus rhythm with short RI Incomplete right bundle branch block Borderline ECG When compared with ECG of 09-Jan-2025 16:50, No significant change was found Referred By: Kaylee Granados Electronically Signed By: DEISI DAVE MD
[2025-01-09] MEDS: Acetaminophen 325 MG TABLET 650 MG PO (18:59)
[2025-01-09 22:42] LABS: Troponin-I High Sensitivity < 2.7 ng/L (<3.5-17.0)
[2025-01-09 23:19] VITALS: BP 122/81; PULSE 67; RESP 20; TEMP 36.4; O2SAT 98
== END 2025-01-10 00:04 | disposition left against medical advice (07) ==
PROVIDERS: Emergency Medicine; Physician Assistant Medical; Emergency Provider Emergency Medicine; PCP Family Medicine
DX: R07.9 Chest pain, unspecified (principal); Z03.818 Encounter for observation for suspected exposure to other biological agents ruled out
CPT/HCPCS: 0241U; 36415; 80053; 83735; 84484; 85025; 85610; 85730; 93005; 99283

== ENCOUNTER → 2025-01-09 16:50 | Outpatient (BNV) | payer MEDICAID, SELFPAY | PROVIDERS: Emergency Provider Emergency Medicine; PCP Family Medicine; Visit Provider Internal Medicine Cardiovascular Disease | DX: I45.10 Unspecified right bundle-branch block (principal) | CPT/HCPCS: 93010 ==